=== PATIENT | female | born 1945 | race African-American/Black ===

== ENCOUNTER 2023-04-24 10:42 | Emergency (ER) | payer OTHER, MEDICAID ==
[2023-04-24 11:45] LABS: SARS-CoV-2 NAA Rapid Test Not Detected (NotDetected)
== END 2023-04-24 11:54 | disposition home or self-care (01) ==
LOC: BURERS 10:42
DX: J20.9 Acute bronchitis, unspecified (principal); I10 Essential (primary) hypertension; Z20.822 Contact with and (suspected) exposure to COVID-19
CPT/HCPCS: 0240U; 71046; 99283